=== PATIENT | female | born 1945 | race Caucasian/White ===

== ENCOUNTER 2019-08-12 00:31 | Day surgery (SDC) | payer MEDICARE, SELFPAY ==
[2019-08-08 10:39] VITALS: BMI 19.7
[2019-08-12 07:54] VITALS: BP 150/76; PULSE 97; RESP 18; TEMP 37.1; O2SAT 97; BMI 19.3
[2019-08-12] MEDS: LACTATED RINGERS 1,000 ML 150 ML IV CONT (08:12)
--- NOTE | 2019-08-12 08:12 | WPDANESEPPF ---
Anes - Initial Pre Proc Eval Procedure: Operation Date: 08/12/19 08:30 Proposed Procedures p Esophagogastroduodenoscopy - Alexis Blanca MD Date/Time: 08/12/19 08:12 Surgeon: Alexis Blanca MD Pre Op Diagnosis: Esophageal Stricture Patient Data Age: 73 Gender: F Height: 5 ft Weight: 45 kg Last Vital Signs Temp 98.7 F 08/12/19 07:54 Pulse 97 08/12/19 07:54 Resp 18 08/12/19 07:54 BP 150/76 H 08/12/19 07:54 Pulse Ox 97 08/12/19 07:54 Allergies Allergy/AdvReac Type Severity Reaction Status Date / Time latex Allergy Severe Other Verified 08/12/19 07:51 Sulfa (Sulfonamide Allergy Severe Rash Verified 08/12/19 07:51 Antibiotics) Home Medications Medication Instructions Recorded Confirmed Type fluticasone propion-salmeterol 1 inh INHALATION BID 05/09/19 08/12/19 History [Advair Diskus] montelukast 10 mg PO DAILY 05/09/19 08/08/19 History pantoprazole [Protonix] 40 mg PO BID 05/09/19 08/12/19 History alendronate 70 mg PO WEEKLY 05/12/19 08/12/19 History albuterol sulfate 1 inh INHALATION PRN PRN 06/06/19 08/12/19 History loratadine [Claritin] 10 mg PO DAILY 06/06/19 08/08/19 History Patient hx anesthesia problems: none Family hx anesthesia problems: none [facility] Past Medical History Medical History Anxiety Asthma COPD (chronic obstructive pulmonary disease) Smoker Social History Social History Gender identity (if verbalized by the patient): Female Anes - Eval Final PreProcedure Day of Procedure 08/12/19 08:12 Patient weight: normal Heart: regular rate and rhythm Lungs: clear to auscultation Airway: Mallampati scale class II Neurological: alert and oriented Last oral intake: >/= 8 hours ASA classification: III Emergent: no Anesthetic plan: proceed Anesthesia type and monitoring: general GIVS and standard monitoring Informed Consent: The patient's anesthetic plan and its attendant risks and benefits were discussed with the patient/family/POA. Questions were solicited and answers provided to the satisfaction of the patient/family/POA.
--- NOTE | 2019-08-12 08:32 | P.CONGI_ITS ---
Assessment and Plan Additional Plan This is a 73-year-old white female patient who presents for EGD. Patient followed by Dr. Nathan Odonnell. Patient has a long history of acid reflux. Has had several prior endoscopies with distal esophageal stricture ring. Most recent EGD in May revealed distal esophageal ulceration stricture ring requiring dilatation. She has been maintained on Protonix 40 mg p.o. b.i.d. since that time. She states that she has swallowed relatively well until the last 2 weeks when food begun is to hang up again in mid chest. She denies any heartburn or pain at this time. She denies any significant weight loss. Past medical history is significant for GERD. Asthma. COPD. Current medications include albuterol, alendronate, loratadine, montelukast, and pantoprazole 40 mg p.o. daily. medical allergy to sulfa. Physical exam reveals patient to be alert. Vital signs stable. She is somewhat thin in appearance. HEENT exam unremarkable. Lungs are clear to auscultation and percussion. Heart is without murmur or extra sounds. Abdominal exam bowel sounds are present soft nontender with no organomegaly. Digital external rectal exam is normal. Impression 1. GERD. 2. Distal esophageal stricture and ulceration. Dilated to 38 [place] 2 months ago. 3. COPD, asthma. Plan is for high-dose proton pump inhibitor. Strict anti-reflux measures including elevating head of bed in no late snacks. Follow-up EGD will be performed because of dysphagia. May be required intermittently. GI Consult Note Consult date/time: 08/12/19 08:32 HPI: Nora Oconnor is a 73 year old female [facility] Past Medical History Medical History Anxiety Asthma COPD (chronic obstructive pulmonary disease) Smoker Social History Social History Gender identity (if verbalized by the patient): Female Meds Home Medications and Allergies Home Medications Medication Instructions Recorded Confirmed Type fluticasone propion-salmeterol 1 inh INHALATION BID 05/09/19 08/12/19 History [Advair Diskus] montelukast 10 mg PO DAILY 05/09/19 08/08/19 History pantoprazole [Protonix] 40 mg PO BID 05/09/19 08/12/19 History alendronate 70 mg PO WEEKLY 05/12/19 08/12/19 History albuterol sulfate 1 inh INHALATION PRN PRN 06/06/19 08/12/19 History loratadine [Claritin] 10 mg PO DAILY 06/06/19 08/08/19 History Allergies Allergy/AdvReac Type Severity Reaction Status Date / Time latex Allergy Severe Other Verified 08/12/19 07:51 Sulfa (Sulfonamide Allergy Severe Rash Verified 08/12/19 07:51 Antibiotics) Vital Signs Vital Signs - 24 hr 08/12/19 07:54 Temperature 37.1 C Pulse Rate 97 Respiratory Rate 18 Blood Pressure 150/76 H Pulse Oximetry 97
[2019-08-12 08:54] VITALS: BP 121/71; PULSE 73; RESP 20; O2SAT 99
[2019-08-12 09:04] VITALS: BP 129/66; PULSE 73; RESP 16; O2SAT 100
[2019-08-12 12:39] VITALS: BP 141/78; PULSE 88; RESP 20; O2SAT 100
== END 2019-08-12 09:38 | disposition home or self-care (01) ==
PROVIDERS: PCP Family Medicine Adolescent Medicine; Visit Provider Internal Medicine Gastroenterology
PROC: 0DJ08ZZ Inspection of Upper Intestinal Tract, Via Natural or Artificial Opening Endoscopic (ICD-10-PCS; CPT 43235; principal; 2019-08-12 08:30)
DX: K21.9 Gastro-esophageal reflux disease without esophagitis (principal); K22.2 Esophageal obstruction; J44.9 Chronic obstructive pulmonary disease, unspecified; F41.9 Anxiety disorder, unspecified; Z72.0 Tobacco use
CPT/HCPCS: 43235; 43450; J2704; J7120

== ENCOUNTER 2020-09-10 15:13 | Emergency (ER) | payer MEDICARE, SELFPAY ==
[2020-09-10] VITALS (22 sets, daily range): BP systolic 135–152; BP diastolic 72–83; PULSE 83–110; RESP 16–26; TEMP 36.6–37.2; O2SAT 95–100
--- NOTE | ~2020-09-10 | CT_ITS ---
EXAMINATION: CT brain wo con DATE: 09/10/2020 16:51 INDICATION: Difficulty remembering. Episodes of lockjaw. TECHNIQUE: Computed tomography (CT) of the head was performed without intravenous contrast. The dose- length product was 605.33 mGy-cm. Automated exposure control and iterative reconstruction technique w ere employed. COMPARISON: CT dated 09/12/2004 FINDINGS: There is a low-density mass in the left frontal lobe measuring 2.9 cm with large amount of surrounding vasogenic edema in the left frontal, left parietal with possible extension of edema into the right frontal lobe. There is mass effect with midline shift to the right measuring approximately 5 mm. There are scattered mild-moderate periventricular and subcortical white matter changes, most li maria teresa related to small vessel ischemic disease (microangiopathy). Basilar cisterns are patent. No intr acranial hemorrhage is identified. Paranasal sinuses and mastoids are pneumatized. IMPRESSION: 1. Abnormal low-density mass left frontal lobe measuring up to 2.9 cm with surrounding vasogenic alvarado a involving the left frontal lobe, parietal lobe and possibly the right frontal lobe. There is mass e ffect with midline shift to the right measuring 5 mm. Differential diagnosis includes metastatic dise ase and primary brain tumor. Recommend further evaluation with contrast-enhanced MRI. Reviewed, dictated and finalized at location A. IMPRESSION: 1. Abnormal low-density mass left frontal lobe measuring up to 2.9 cm with surr ounding vasogenic edema involving the left frontal lobe, parietal lobe and poss ibly the right frontal lobe. There is mass effect with midline shift to the rig ht measuring 5 mm. Differential diagnosis includes metastatic disease and prima ry brain tumor. Recommend further evaluation with contrast-enhanced MRI.
--- NOTE | ~2020-09-10 | XR_ITS ---
XR chest 1V portable 09/10/2020 16:56 Indication: Transient alteration of awareness. COPD. Asthma. Procedure: AP portable chest Comparison: Comparison to multiple prior studies sequentially, with oldest reviewed study dated 09/11. Findings: Heart size upper normal. There is possible left hilar mass. The lungs are hyperinflated whi ch is consistent with, but not diagnostic of chronic obstructive pulmonary disease. No acute focal pn eumonia, pleural effusion, edema or pneumothorax. No acute osseous abnormality. There is evidence for chronic granulomatous disease. There are healed right rib fractures. Impression: 1: Possible left hilar mass. Consider correlation with contrast-enhanced CT chest on a nonemergent ba sis. Reviewed, dictated and finalized at location A. Impression: 1: Possible left hilar mass. Consider correlation with contrast-enhanced CT [address] on a nonemergent basis.
--- NOTE | 2020-09-10 16:32 | ECG_ITS ---
Measurements Intervals [place] Rate: 87 P: 102 SD: 172 QRS: 90 QRSD: 77 T: 82 QT: 337 QTc: 407 Interpretive Statements SINUS RHYTHM BASELINE ARTIFACT- I, II, III, AVR, AVL, AVF, V1-V6 BORDERLINE ECG Electronically Signed On 09-10-2020 20:14:22 CDT by Aristides Zhao D.O.
--- NOTE | 2020-09-10 17:56 | PC.NURSE ---
Patient updated by ER provider, patient is having difficulty remembering and recalling. patient easy to redirect but does get angry as she feels she is not being informed. patient education given regarding treatment plan. patient verbalized understanding but also states she knows she may forget patient is redirectable but anxious. ER provider contacting patient's family regarding plan of care.
[2020-09-10 18:02] LABS: Glucose Point of Care 90 (65-105)
[2020-09-10 18:07] LABS: Basophils Absolute Auto 0.1 K/mm3 (0.0-0.1); Basophils Percent Auto 1.2 % (0.2-1.2); Eosinophils Absolute Auto 0.2 K/mm3 (0-0.3); Eosinophils Percent Auto 3.6 % (0-4.4); Hematocrit 38.3 % (37.0-47.0); Hemoglobin 13.1 g/dL (12.0-15.0); Immature Granulocyte Absolute 0.02 K/mm3 (0.00-0.031); Immature Granulocyte Percent A 0.3 % (0-0.5); Lymphocytes Absolute Auto 1.47 K/mm3 (0.9-3.2); Lymphocytes Percent Auto 22.7 % (18.3-44.2); Mean Corpuscular HGB Conc 34.2 g/dl (32-36); Mean Corpuscular Hemoglobin 30.9 pg (26-34); Mean Corpuscular Volume 90.3 fl (80-100); Mean Platelet Volume 9.2 fl (7.4-10.4); Monocytes Absolute Auto 0.5 K/mm3 (0.1-0.6); Monocytes Percent Auto 7.9 % (2.6-8.5); Neutrophils Absolute Auto 4.2 K/mm3 (1.3-6.7); Neutrophils Percent Auto 64.3 % (45.5-73.1); Platelet Count Result 215 k/mm3 (150-375); Red Blood Count 4.24 M/mm3 (4.2-5.4); Red Cell Distribution Width 13.2 % (11.5-14.5); White Blood Count 6.5 K/mm3 (4.5-10.0)
[2020-09-10 18:16] LABS: INR 0.9; Prothrombin Time 12.6 Seconds (11.1-14.7)
[2020-09-10 18:17] LABS: Anion Gap 4 mmol/L (8-16); Blood Urea Nitrogen 9 mg/dL (7-17); Calcium 9.3 mg/dL (8.4-10.2); Carbon Dioxide 27 mmol/L (22-30); Chloride 102 mmol/L (98-107); Estimated CRCL calculation 57 ml/min; Estimated Glomerular Filt Rate > 60; Glucose 104 mg/dL (65-105); Partial Thromboplastin Time 24.1 SECONDS (22.3-36.8); Potassium 4.5 mmol/L (3.4-5.0); Sodium 133 mmol/L (137-145)
[2020-09-10 18:29] LABS: Troponin I < 0.012 ng/mL (0.000-0.034)
--- NOTE | 2020-09-10 18:36 | PC.NURSE ---
Report called to Ken KAYE at [facility] ED.
--- NOTE | 2020-09-10 18:47 | ED.GENADULT ---
HPI - General Adult General Chief complaint: Unspecified Stated complaint: memory problems x 1 week lock jaw. Time Seen by Provider: 09/10/20 16:31 Source: patient and family Mode of arrival: ambulatory Limitations: no limitations History of Present Illness HPI narrative: Patient is a 74-year-old female who presents to emergency department for evaluation of forgetfulness over the last 2 weeks patient has been having difficulty remembering numbers and other things that she would normally be able to easily remember patient notes she has had mild left frontal headache. Patient denies injury trauma similar occurrence and presents with her in the room patient is alert and oriented on arrival and answers questions appropriately but does have some issues recalling. Patient otherwise has no focal neurologic deficits on arrival Related Data Home Medications Medication Instructions Recorded Confirmed fluticasone propion-salmeterol 1 inh INHALATION BID 05/09/19 08/12/19 [Advair Diskus] montelukast 10 mg PO DAILY 05/09/19 08/08/19 pantoprazole [Protonix] 40 mg PO BID 05/09/19 08/12/19 alendronate 70 mg PO WEEKLY 05/12/19 08/12/19 albuterol sulfate 1 inh INHALATION PRN PRN 06/06/19 08/12/19 loratadine [Claritin] 10 mg PO DAILY 06/06/19 08/08/19 Allergies Allergy/AdvReac Type Severity Reaction Status Date / Time latex Allergy Severe Other Verified 09/10/20 16:06 Sulfa (Sulfonamide Allergy Severe Rash Verified 09/10/20 16:06 Antibiotics) Review of Systems Review of Systems: All systems reviewed & are unremarkable except as noted in HPI and below PMFSH Past Medical History Medical History Anxiety Asthma COPD (chronic obstructive pulmonary disease) Smoker Social History Social History (Updated 09/10/20 @ 18:48 by Yuri Wolf PA-C) Smoking status: Current every day smoker Gender identity (if verbalized by the patient): Female Exam Narrative: Exam Narrative: GENERAL: Well-appearing, well-nourished, and in no acute distress. HEAD: Normocephalic, atraumatic. EYES: PERRLA and EOMI. ENT: Nares clear, no rhinorrhea or epistaxis. Mucous membranes moist. NECK: Supple. No adenopathy or masses. CHEST: Clear to auscultation. No respiratory distress. No wheezes rales or rhonchi HEART: Regular rate and rhythm. No murmur heard. Normal peripheral pulses. ABDOMEN: Soft, nontender, nondistended EXTREMITIES: Normal range of motion. No edema. SKIN: Warm, dry, no rash. NEURO: No focal deficits. Alert and oriented, patient with some difficulty recalling the day of the week and the month. Cranial nerves II through XII grossly intact. Normal speech. Motor and sensory intact and symmetrical in the extremities. No pronator drift. PSYCH: Normal mood and affect. Course Course Emergency Course: Patient was found to have brain mass and hilar mass will be transferred to [facility] for specialty services patient is agrees with this plan discussion was made with her and son per her request who are also aware of the treatment plan and agree with that. Patient is hemodynamically stable. Patient has been hydrated and given Decadron in the emergency department. Consultations Consultation #1: Discussed case with neurosurgery in the emergency department at [facility] have agreed to set the patient the only recommendation was to give 4 of Decadron at this time with no further recommendations and he will be reevaluated on arrival Date: 09/10/20 Time: 18:50 Vital Signs Vital signs: Vital Signs Temperature 98.9 F 09/10/20 15:47 Pulse Rate 93 09/10/20 15:47 Respiratory Rate 16 09/10/20 15:47 Blood Pressure 142/72 H 09/10/20 15:47 Pulse Oximetry 95 09/10/20 15:47 Temperature 97.9 F 09/10/20 16:00 Pulse Rate 98 09/10/20 18:41 Respiratory Rate 19 09/10/20 18:41 Blood Pressure 139/80 09/10/20 18:41 Pulse Oximetry 100 09/10/20 17:54 Medical
--- NOTE | 2020-09-10 20:19 | PC.NURSE ---
Called Renee, got trip number [phone] and ETA of [id number]
[2020-09-10] MEDS: DEXAMETHASONE SOD PHOS INJ 4 MG/ML VIAL IV PUSH (20:22)
--- NOTE | 2020-09-10 20:22 | PC.NURSE ---
Per VERN bonilla Decadron 4mg IVP administered at this time.
--- NOTE | 2020-09-10 23:12 | PC.NURSE ---
V[facility]ctor trip #[id number] ETA 2300 called [id number] arrived [id number]
== END 2020-09-10 23:09 | disposition short-term general hospital (02) ==
PROVIDERS: Emergency Medicine Emergency Medical Services; Emergency Provider Emergency Medicine; PCP Family Medicine Adolescent Medicine
DX: G93.89 Other specified disorders of brain (principal); J44.9 Chronic obstructive pulmonary disease, unspecified; F17.200 Nicotine dependence, unspecified, uncomplicated; R94.31 Abnormal electrocardiogram [ECG] [EKG]
CPT/HCPCS: 36415; 70450; 71045; 80048; 82948; 84484; 85025; 85610; 85730; 93005; 96374; 99284; 99285; J1100